=== PATIENT | male | born 1985 | race Caucasian/White ===

== ENCOUNTER 2017-06-14 06:23 | Emergency (ER) | payer MEDICAID ==
[~2017-06-14] VITALS: Ht 170.2 cm; Wt 79.3 kg
[2017-06-14 06:27] VITALS: Ht 170.2 cm; Wt 79.3 kg
[2017-06-14] MEDS ORDERED: DIPHTH/TET/ACEL PERTUSS (ADULT) 0.5 ML VIAL IM* ONE (07:30)
[2017-06-14] MEDS ORDERED: LIDOCAINE 1% (MDV) 20 ML INJ SC ONE (07:30)
--- NOTE | 2017-06-14 09:03 | RADRPT ---
PROCEDURE: CT Brain without contrast. CLINICAL INDICATION: Head injury status post fall TECHNIQUE: A CT of the brain was performed on a multidetector CT scanner utilizing axial sections from the skull base through the vertex without contrast. Images were reviewed on a high-resolution [employer] workstation. Exam CTDI = 42.93 mGy and the DLP = 720.23 mGy-cm. DICOM images are available. One or more of the following dose reduction techniques were used: Automated exposure control Adjustment of the mA and/or kV according to patient size. Use of iterative reconstruction technique. COMPARISON: None available FINDINGS: There is no evidence of intracranial hemorrhage, mass effect or midline shift. No abnormal intra-axi al or extra-axial fluid collections are seen. The density of the brain is normal and the garrett/white matter differentiation is well preserved. There is old right lamina papyracea fracture. Moderate m ucosal thickening is seen in the ethmoid air cells. Mild mucosal thickening is seen in the sphenoid sinuses. The osseous structures are otherwise unremarkable. IMPRESSION: 1. No intracranial hemorrhage, mass effect or midline shift. RPTAT: HHO .Pj Murrieta MD, Date Time Electronically viewed and signed by .Pj Murrieta MD, on 06/14/2017 09:02 .O/
[2017-06-14] MEDS ORDERED: ACET500C5 PO (09:42)
[2017-06-14] MEDS ORDERED: CEPH-443 PO (09:42)
[2017-06-14 10:08] VITALS: BP 132/64; PULSE 72; RESP 19; TEMP 98.2
--- NOTE | 2017-06-14 10:12 | ERD ---
ER Documentation Chief Complaint Chief Complaint lac on chin s/p fall in bathroom HPI Patient is a 31-year-old male who presents ED for concerns of a laceration edition after falling in the bathroom earlier this morning. Patient states around 6 AM slipped and hit his chin while in the shower. Patient does admit to drinking 6 beers last night. Patient denies any headache, nausea, vomiting, acute confusion, excessive sleepiness or loss consciousness. Patient denies any abdominal pain. Patient denies any neck or back pain. Patient denies any chest pain, shortness of breath, left upper extremity, diaphoresis or LOC. Speaking in full sentences. Patient is ambulate without any difficulty. Patient does not recall his last tetanus vaccination. ROS All systems reviewed and are negative except as per history of present illness. Medications Home Meds Active Scripts Acetaminophen* (Tylophen*) 500 Mg Capsule, 1 CAP PO Q6H Y for PAIN AND OR ELEVATED TEMP, #20 CAP Prov:BOBY MELGAR PA-C 06/14/17 Cephalexin* (Keflex*) 500 Mg Capsule, 500 MG PO TID for 7 Days, CAP Prov:BOBY MELGAR PA-C 06/14/17 PMhx/Soc Medical and Surgical Hx: pt denies Medical Hx, pt denies Surgical Hx Hx Alcohol Use: No Hx Substance Use: No Hx Tobacco Use: Yes Smoking Status: Current some day smoker Physical Exam Vitals Vital Signs Date Time Temp Pulse Resp B/P Pulse Ox O2 Delivery O2 Flow Rate FiO2 06/14/17 10:08 98.2 72 19 132/64 99 Room Air 06/14/17 06:27 98.1 84 18 144/78 99 Physical Exam GENERAL: Well-developed, well-nourished male. Appears in no acute distress. Speaking in full sentences. HEAD: Normocephalic, atraumatic. No deformities or ecchymosis. EYE: Pupils equal, round, and reactive to light. EOMs intact. No conjunctival erythema. No eye discharge. Perioral ecchymosis or swelling. ENT: External ear without any masses or tenderness. Auditory canals clear bilaterally. No hemotympanum noted bilaterally. TM visualized bilaterally, non -erythematous, non-bulging. Nasal mucosa pink with no discharge. Oropharynx is pink without any tonsillar erythema or exudates. No uvula deviation. No kissing tonsils. Able to open and close jaw without any difficulty. No mastoid ecchymosis or tenderness noted. NECK: Supple. No meningismus. Normal ROM of the neck. No cervical midline tenderness. LUNG: Clear to auscultation bilaterally. No rhonchi, wheezing, rales or coarse breath sounds. HEART: Regular rate and rhythm. No murmurs, rubs or gallops. BACK: No midline tenderness. EXTREMITIES: Equal pulses bilaterally. No peripheral clubbing, cyanosis or edema. No unilateral leg swelling. NEUROLOGIC: Alert and oriented x3, cooperative. Mood and affect appropriate to situation. Cranial nerves II through XII are grossly intact. Normal speech. Motor exam: 5/5 strength in upper and lower extremities. Sensory exam: Sensation intact to light touch on all four extremities. Cerebellar function exam: No dysmetria on [id number] test. Steady gait. No pronator drift. SKIN: 3 cm laceration noted on the patient's lower aspect of his left chin. Minimal active bleeding. Results 24 hrs Current Medications Medications (Trade) Dose Ordered Sig/Tia Route PRN Reason Start Time Stop Time Status Last Admin Dose Admin Lidocaine (Xylocaine 1% (Mdv) 20 ml) 20 ml ONCE ONCE SC 06/14/17 07:30 06/14/17 07:31 DC Diphtheria/ Tetanus/Acell Pertussis (Adacel) 0.5 ml ONCE ONCE IM* 06/14/17 07:30 06/14/17 07:31 DC 06/14/17 07:40 Procedures/MDM ED COURSE: The patient was stable throughout ED course. I kept the patient and/or family informed of laboratory and diagnostic imaging results throughout the ED course. DIAGNOSTIC IMAGING: Read by radiologist. Patient: MARGARITA TINEO : 1985 Age: 31 Sex: M MR #: [id number] DOS: 06/14/17722 Ordering MD: BOBY MELGAR PA-C Location: [facility] Room/Bed: PROCEDURE: CT Brain without contrast. CLINICAL INDICATION: Head injury status post fall TECHNIQUE: A CT of the brain was performed on a multidetector CT scanner utilizing axial sections from the skull base through the vertex without contrast. Images were reviewed on a high-resolution PACS workstation. Exam CTDI = 42.93 mGy and the DLP = 720.23 mGy-cm. DICOM images are available. One or more of the following dose reduction techniques were used: Automated exposure control Adjustment of the mA and/or kV according to patient size. Use of iterative reconstruction technique. COMPARISON: None available FINDINGS: There is no evidence of intracranial hemorrhage, mass effect or midline shift. No abnormal intra-axial or extra-axial fluid collections are seen. The density of the brain is normal and the garrett/white matter differentiation is well preserved. There is old right lamina papyracea fracture. Moderate mucosal thickening is seen in the ethmoid air cells. Mild mucosal thickening is seen in the sphenoid sinuses. The osseous structures are otherwise unremarkable. IMPRESSION: 1. No intracranial hemorrhage, mass effect or midline shift. RPTAT: HHO .Pj Murrieta MD, MD Date Time Electronically viewed and signed by .Pj Murrieta MD, MD on 06/14/2017 09:02 .O/ CC: BOBY MELGAR PA-C PROCEDURES: Laceration Repair by me: Anesthesia: 1% lidocaine locally Location: 5 cc Tendon/Joint/Nerves: No injury Foreign body: None detected after copious irrigation and exploration Technique: Simple Interrupted Sutures Complexity: No subcutaneous sutures/mucosal repair/edge excision Post Closure Length: 3 cm Sutures placed: 4 Prolene 5-0 Patient's bleeding was easily controlled in the department and there is no indication of anemia. No evidence of compartment syndrome, neurologic injury, vascular injury, open joint, tendon laceration, or foreign body. Patient is appropriate for outpatient follow up. 48 hour wound check. Scar minimization instructions given. MEDICATIONS GIVEN: Tdap Patient tolerated medication well with no adverse reactions. Patient reported improvement in pain. MEDICAL DECISION MAKING: This is a 31-year-old male who presents with a laceration under his chin after falling while in the shower. Patient did admit to drinking last night. Patient did not recall his last tetanus vaccination thus he was given it today. Vital signs were reviewed. Patient was afebrile. The wound was cleansed thoroughly and closed using sutures. The patient had good wound closure and wound approximation. Patient tolerated wound closure without any complications. Tetanus was updated today. CT brain was negative. At this time, patient presentation is most consistent with laceration repair status post fall injury. Low suspicion for intracranial hemorrhage, skull fracture, mass effect, midline shift. tendon injury, neurovascular injury, jaw fracture. PRESCRIPTIONS: Keflex, Tylenol DISCHARGE: At this time, the patient is stable for discharge and outpatient management. Post-procedural wound care was discussed with the patient. The patient has been advised to return to the ER in 2 days for a wound check. I have instructed the patient to promptly return to the ER for any new or worsening symptoms including increasing pain, fever, warmth, redness or swelling. The patient and/ or family expressed understanding of and agreement with this plan. All questions were answered. Home care instructions were provided. Disclaimer: Inadvertent spelling and grammatical errors are likely due to EHR/ dictation software use and do not reflect on the overall quality of patient care. Also, please note that the electronic time recorded on this note does not necessarily reflect the actual time of the patient encounter. Departure Diagnosis: Primary Impression: Laceration Additional Impression: Head injury Encounter type: initial encounter Qualified Code: S09.90XA - Injury of head , initial encounter Condition: Stable Patient Instructions: Laceration, All Referrals: [facility] YOU HAVE RECEIVED A MEDICAL SCREENING EXAM AND THE RESULTS INDICATE THAT YOU DO NOT HAVE A CONDITION THAT REQUIRES URGENT TREATMENT IN THE EMERGENCY DEPARTMENT. FURTHER EVALUATION AND TREATMENT OF YOUR CONDITION CAN WAIT UNTIL YOU ARE SEEN IN YOUR DOCTORS OFFICE WITHIN THE NEXT 1-2 DAYS. IT IS YOUR RESPONSIBILITY TO MAKE AN APPOINTMENT FOR FOLOW-UP CARE. IF YOU HAVE A PRIMARY DOCTOR --you should call your primary doctor and schedule an appointment IF YOU DO NOT HAVE A PRIMARY DOCTOR YOU CAN CALL OUR PHYSICIAN REFERRAL HOTLINE AT IF YOU CAN NOT AFFORD TO SEE A PHYSICIAN YOU CAN CHOSE FROM THE FOLLOWING [facility] [address] [facility] [address] [facility] [address] [facility] [address] [facility] [address] [facility] [facility] [address] [facility]. [facility] YOU HAVE RECEIVED A MEDICAL SCREENING EXAM AND THE RESULTS INDICATE THAT YOU DO NOT HAVE A CONDITION THAT REQUIRES URGENT TREATMENT IN THE EMERGENCY DEPARTMENT. FURTHER EVALUATION AND TREATMENT OF YOUR CONDITION CAN WAIT UNTIL YOU ARE SEEN IN YOUR DOCTORS OFFICE WITHIN THE NEXT 1-2 DAYS. IT IS YOUR RESPONSIBILITY TO MAKE AN APPOINTMENT FOR FOLOW-UP CARE. IF YOU HAVE A PRIMARY DOCTOR --you should call your primary doctor and schedule and appointment IF YOU DO NOT HAVE A PRIMARY DOCTOR YOU CAN CALL OUR PHYSICIAN REFERRAL HOTLINE AT . IF YOU CAN NOT AFFORD TO SEE A PHYSICIAN YOU CAN CHOSE FROM THE FOLLOWING [facility] INSTITUTIONS: [facility] [address] [place] [address] [facility] [address] [place] [address] [facility] [address] [place] [address] Additional Instructions: Strict head injury return precautions advised. Return immediately for any worsening pain, nausea, vomiting, acute confusion, excessive sleepiness or loss consciousness. Return in 2 days for wound recheck. Take antibiotics as prescribed. Call your primary care doctor TOMORROW for an appointment during the next 1-2 days.See the doctor sooner or return here if your condition worsens before your appointment time. BOBY MELGAR PA-C Jun 14, 2017 10:12
== END 2017-06-14 10:09 | disposition home or self-care (01) ==
LOC: FTE 06:23
DX: S01.81XA Laceration without foreign body of other part of head, initial encounter (principal); S09.90XA Unspecified injury of head, initial encounter; F17.210 Nicotine dependence, cigarettes, uncomplicated; W01.198A Fall on same level from slipping, tripping and stumbling with subsequent striking against other object, initial encounter; Y92.002 Bathroom of unspecified non-institutional (private) residence as the place of occurrence of the external cause; Z23 Encounter for immunization
CPT/HCPCS: 12013; 70450; 90471; 90715; Z7502; Z7610

== ENCOUNTER 2017-06-17 19:54 | Emergency (ER) | END 2017-06-17 20:00 | disposition home or self-care (01) ==

== ENCOUNTER 2017-06-27 12:25 | Emergency (ER) | END 2017-06-27 13:00 | disposition home or self-care (01) ==